=== PATIENT | male | born 1950 | race Caucasian/White ===

== ENCOUNTER 2016-08-25 12:33 | Inpatient (IN) | payer MEDICARE ==
[~2016-08-25] VITALS: Ht 170.2 cm; Wt 81.0 kg
[2016-08-25 14:30] VITALS: BP 166/103; PULSE 107; O2SAT 95
--- NOTE | 2016-08-25 14:30 | NUR ---
admit Patient arrived from [facility] alert and oriented. Patient denies pain. C/o nausea and abdominal tenders and "bloated feeling." pt had 1L removed via paracenthesis at [facility]; abd bandage CDI. Patient stated that he has not voided in two days and has only has a very small dark stool in a week. notified. VS: Bp 163/103 HR125, RR 22, Sp02 on RA 95%, t 36.4 BG 195. Pitting LE edema in ankles and feet, trace in lower legs. Pt stated that he is very weak on feet, no hx of falls. Patient uses call light and has urinal at bedside. Addendum: 08/25/16 at 1820 by KAMI CHAIREZ RN Administered 5mg Lopressor IVP, and 120 mg PO dilt. last set of vitals. BP 134/89 P afib 85
[2016-08-25] MEDS ORDERED: ASPI-973 PO (14:57)
[2016-08-25 15:00] VITALS: PULSE 132
[2016-08-25] MEDS ORDERED: MeTOProlol 1 mg/mL 5 mL Inj IVPUSH SCH (15:20)
[2016-08-25] MEDS ORDERED: MeTOProlol 1 mg/mL 5 mL Inj IVPUSH ONE (15:20)
[2016-08-25] MEDS ORDERED: Furosemide 10 mg/mL 10 mL Inj IVPUSH ONE (15:30)
--- NOTE | 2016-08-25 15:47 | NUR ---
took over patient [id number]
[2016-08-25 15:51] LABS: BASOPHILS % (AUTO) 0.1 % (0-3); EOSINOPHILS % (AUTO) 0 % (0-5); MONOCYTES % (AUTO) 8.1 % (4-12); Mean Corpuscular Hemoglobin 29.8 pg (27.0-35.0); Mean Corpuscular Volume 87.2 fL (81-100); NEUTROPHILS % (AUTO) 88.3 % (40-74); Platelet Count 505 bil/L (150-400)
--- NOTE | 2016-08-25 16:19 | DRSVH ---
PROCEDURE: X-RAY CHEST ONE VIEW, PORTABLE ([id number]) INDICATIONS: pulmonary edema aneuric TECHNIQUE: One view of the chest was acquired. COMPARISON: None. FINDINGS: Surgical changes and devices: None. Lungs and pleura: No pleural effusions or pneumothorax. Lungs are clear. Mediastinum: Mediastinal contours appear normal. Heart size is enlarged. Bones and chest wall: No suspicious bony lesions. Overlying soft tissues appear unremarkable. IMPRESSION: No acute cardiopulmonary disease. Dictated by: Joon GHOSH Interpreted: Louie Carolina MD on 08/25/2016 at 16:18 Transcribed by: AFIA on 08/25/2016 at 16:19 Approved by: Ander Carolina M.D. on 08/25/2016 at 16:19
[2016-08-25 16:25] LABS: Magnesium 2.7 mg/dL (1.6-2.6)
--- NOTE | 2016-08-25 16:25 | PCM.HPMED ---
Subjective Date of Service August 25, 2016 Primary Provider: Admitting Physician: Meet Hutchinson Primary Care Physician: Steve Deal MD Attending Physician: Meet Hutchinson Chief Complaint: Difficulty of breathing History of Present Illness: 66-year-old male with history of hypertension, diabetes, cirrhosis, hep C, atrial fibrillation and should present to [facility] with two weeks of difficulty breathing. Patient stated that he had food poisoning about 2 weeks ago after he had ham and burger. Pt had large amount vomiting and diarrhea once , felt not good. Since then started having his abdominal size was getting bigger , progressively tender. Patient also noticed that he was easily dyspneic with minimal exertion, noticed leg swellings as well. couldn't sleep well but didn't have PND. pt denied cough, sputum, sore throat, runny nose, fever chills. pt stated that he was stubborn and wait till today, decided to come to the hospital due to progressively worsening sx. During the course of [facility]. noted hypertensive to 180s, tachycardic to 130s. [id number]. pt had [id number] iv, responded to [id number]. abd US obtained which showed echogenic liver with multiple nodules, echogenic. ascities. Paracentesis performed, 1liter cloudy fluid was drained, which showed [id number], neut 78%. pt got 1g Ceftriaxone for presumed SBP. Lab showed wbc16.3, h /h15.1/45.0, neu92%, INR1.4, albumin1.0, ammonia<10, bun74, Cr4.4, Na140, K5.5 AST/ALT 35/17, bili normal. PCP was consulted. Given no GI/ nephrology back up, recommended to transfer to [facility] with assumption of HRS. upon MPC, VS 166/103, 107-133, afebrile, 95% on RA. pt looked mildly distressed but comfortable on bed, HOB>20, repeat labs were sent. consulted, Review of Systems: Pertinent positives as noted in history of present illness. All other systems were reviewed and are negative Allergies Coded Allergies: codeine (Verified Allergy, Intermediate, Rash, 08/25/16) Home Medications baby [id number] daily PMH HTN DM liver cirrhosis hepatitis C, used to be on interferon tx afib, thinks he was on AC in the past, cannot remember Surgical History tonsilectomy Family History no CAD Social History Hx Alcohol Use: Yes (occasional) Alcoholic Drinks Per Day: none now Hx Substance Use: Yes (marijuana) Hx Tobacco Use: No Additional Information lives with Exam Vital Signs Vital Sign - Last Date Time Temp Pulse Resp B/P Pulse Ox O2 Delivery O2 Flow Rate FiO2 08/25/16 15:00 132 08/25/16 14:59 Supplement Oxygen 08/25/16 14:30 36.4 166/103 95 Exam NAD, comfortably laying down on the bed, no labored breathing mild JVD, MMM, no LAD tachy irregular, nl s1, s2 no mrg CTAB, no w,c S,distended, mildly tender,normoactive BS+, no stigmata of cirrhosis warm, 1+ pitting edema, pulses 2/2 Assessment & Plan acute, active dyspnea, POA, in the setting of fluid overload, severe REGINO with anuria. currently maintained on RA -high risks of respiratory compromise given anuria, appreciate renal input, probable dialysis, pt is aggreeable -get baseline CXR, O2 supplement as needed. decompensated liver cirrhosis, POA, presumably from underlying hep C. unremarkable hx of etoh. no signs of HE on exam, ammonia unremarkable at [facility]. -will send viral hep panel -trend coag panel -get FOBT -hep C with GI follow up upon d/c new onset ascities, in the setting of cirrhosis, c/b SBP, POA, met criteria+ on ascitic fluid at [place], -continue Rocephine 1g daily, trend fever curve, PCT, FU BCX, needs culture result at [facility] in 1-2days -if pt worsens, will consult ID severe REGINO, POA, possibly prerenal, ATN, HRS. week of aneuria, pt is overaloaded appreciate renal input -alan cath, strict i/o, trend cr, avoid nephrotoxin, renally adjust meds, -albumin challenge per , likely lasix, afib RVR, POA, in the setting of acute infection, rate 110-130s -will try [id number] now, [id number] ivx3, would not too aggressive given infection, -get lipid panel -TTE HTN, monitor for now, until HD more stable, DM, get a1c, diabetic diet dispo:Patient will be admitted with inpatient status with expectation of inpatient therapy for more than 2 midnights diet:renal diet dvt ppx: SCD DNR/DNI, verbally confirmed. VTE Mechanical Devices: Intermittant Pneumatic CD Time spent 65 minutes Eliseo Blackmon MD August 25, 2016 15:12
[2016-08-25] MEDS ORDERED: Cefotaxime Inj 2,000 MG in Dextrose 5% 100 ML IV SCH (16:30)
[2016-08-25] MEDS ORDERED: Albuterol 2.5 mg/3 mL Inhalation Solution NEB ONE ×2 (16:30→17:20)
[2016-08-25] MEDS ORDERED: Insulin Human REGular 300 Unit/3 mL Inj SUBQ SCH (16:30)
[2016-08-25] MEDS ORDERED: Insulin Human REGular 300 Unit/3 mL Inj IV ONE (16:40)
[2016-08-25] MEDS ORDERED: Calcium GLUCO 10% (Gm) Inj 1 GM in 0.9% Sodium Chloride 50 ML IV ONE (16:40)
[2016-08-25] MEDS ORDERED: 0.9% Sodium Chloride 100 ML ONE (16:57)
[2016-08-25 17:02] LABS: INR 1.37 ratio
[2016-08-25] MEDS: Albumin 25% 25 GM in IV Premix 1 EACH IV SCH ×3 (17:05→22:55)
[2016-08-25 17:29] LABS: APPEARANCE,URINE HAZY (CLEAR,HAZY); COLOR,URINE DARK YELLOW (YELLOW); OCCULT BLOOD,URINE LARGE (NEGATIVE); UROBILINOGEN,URINE NORMAL (NORMAL)
[2016-08-25 18:08] VITALS: BP 134/89; PULSE 100; RESP 22; O2SAT 93
--- NOTE | 2016-08-25 18:20 | NUR ---
hyperkalemia upon pts K 6.2. See Emar for administration. pt denies cp and has no s/s d/t electrolyte imbalance.
--- NOTE | 2016-08-25 19:31 | NUR ---
transfer transfered pt [place] [facility] to [facility] due to worsening condition. Bedside report given and medications brought down. Pt displayed no s/s of distress at time of transfer. see EMAR medications administered for hyperkalemia, HTN and tachycardia.
[2016-08-25 19:34] VITALS: BP 121/79; PULSE 94; RESP 25; O2SAT 90
--- NOTE | 2016-08-25 19:34 | NUR ---
Placed Cameron and pt had less than 50mL of urine after not voiding for two days. Albumin given and IV lasix held per nephrology
[2016-08-26] VITALS (9 sets, daily range): BP systolic 127–149; BP diastolic 69–98; PULSE 93–132; RESP 24–28; O2SAT 93–97
--- NOTE | 2016-08-26 05:41 | NUR ---
Resp/HR pt reports SOB when supine, instructed pt to only lay on sides to take pressure off from internal organs, pt refused O2, sats in low to mid 90's. HR steadily increasing throughout night, sustaining in 120's and 130's, called and order for IV Metoprolol received, HR improved to 100's. pt denies any pain, just pressure in his abdomen.
[2016-08-26] MEDS ORDERED: MeTOProlol 1 mg/mL 5 mL Inj IVPUSH ONE ×2 (06:00→13:15)
[2016-08-26 07:38] LABS: BASOPHILS % (AUTO) 0.1 % (0-3); EOSINOPHILS % (AUTO) 0 % (0-5); MONOCYTES % (AUTO) 7.6 % (4-12); Mean Corpuscular Hemoglobin 30.3 pg (27.0-35.0); Mean Corpuscular Volume 87.7 fL (81-100); NEUTROPHILS % (AUTO) 88.5 % (40-74); Platelet Count 331 bil/L (150-400)
[2016-08-26 08:13] LABS: Magnesium 2.7 mg/dL (1.6-2.6); Phosphorus 8.3 mg/dL (2.5-4.9)
[2016-08-26] MEDS ORDERED: Sodium Chloride LOK Flush 10 mL Syringe IVFLUSH PRN ×2 (09:40)
--- NOTE | 2016-08-26 10:56 | NUR ---
NUTRITION ASSESSMENT: ASSESS:66 YO male admitted with hepatorenal syndrome. There is a high risk of respiratory compromise given anuria. Per provider, pt. will likely require dialysis. He also presents with decompensated liver cirrhosis, presumably from underlying hep C, new onset ascites. PICC line placement today. PMHx:Hepatitis C, cirrhosis, HTN, type 2 diabetes, A-fib, recent food poisoning. DIET:Renal consistent carb. PO intake refusal of trays currently. LABS: Chloride 90, BUN 77, Cr 3.96, Glu 219, A1c 7.0, Phos 8.3, M 2.7, Alb 3.8. MEDICATIONS: Albumin. NUTRITION FOCUSED PHYSICAL ASSESSMENT: GI symptoms / stool: Diarrhea reported.Bill: 17.0. Skin Integrity: No issues reported. ANTHROPOMETRICS: Current Wt: 79.8 kgBMI: 27.0 kg/m2. IBW: 67.27 kg (119% IBW) ESTIMATED NEEDS (LIVER DISEASE, ACUTE RENAL FAILURE): Calories: 2394 - 2793 kcal (30 - 35 kcal / kg BW) Protein: 80 - 96 g protein (1.0 - 1.2 g / kg BW) Fluid: Approx. 2000 mL (25 mL / kg BW) NUTRITION DIAGNOSIS: 1)Altered nutrition related labs related to hepatorenal syndrome, as evidenced by significant electrolyte abnormalities, elevated BUN, Cr. 2)Increased nutrient needs related to hepatorenal syndrome, per guidelines. INTERVENTION: 1) Will send Suplena pre-dialysis supplement on lunch and dinner trays, Nepro once dialysis has been initiated. MONITOR/EVALUATE: Diet / supplement tolerance, PO intake, labs, GI/nutrition status. Follow up per moderate nutrition risk guidelines.
--- NOTE | 2016-08-26 12:17 | DRSVH ---
PROCEDURE: X-RAY PICC LINE PLACEMENT BY NURSE ([id number]) INDICATIONS: iv access failed COMPARISON: None. FINDINGS: PICC was placed by the intravenous therapy team from the left side. Fluoroscopic spot dione m demonstrates tip of PICC projected over the cavoatrial junction. IMPRESSION: Tip of PICC projected over the cavoatrial junction as expected. Dictated by: Maribel Kimble M.D. on 08/26/2016 at 12:15 Approved by: Maribel Kimble M.D. on 08/26/2016 at 12:15
[2016-08-26] MEDS: cefTRIAXone Inj 1,000 MG in Dextrose 5% Minibag Plus 50 ML IV SCH (13:01)
[2016-08-26] MEDS ORDERED: Glucose 40% Oral Gel 15 Gm Tube PO PRN (13:30)
--- NOTE | 2016-08-26 14:54 | CONS ---
[address] [address] CONSULTATION REPORT PATIENT: MAKENNA RIGGINS : 1950 MR#: [id number] ADMIT: 08/25/2016 JOB ID: [id number] DATE OF SERVICE: 08/27/2015 REQUESTING PHYSICIAN: Dr. Hutchinson. REASON FOR CONSULTATION: Management of acute kidney injury and hyperkalemia. CHIEF COMPLAINT: Shortness of breath. PRESENT ILLNESS: This is a 66-year-old, male with significant past medical history of chronic hepatitis C infection, liver cirrhosis, type 2 diabetes, hypertension, atrial fibrillation, who was transferred from [facility] for a higher level of care. Patient presented to [facility] ER with a complaint of difficulty breathing. The symptoms started approximately two weeks ago. The patient has noticed increased abdominal girth and difficulty breathing. The patient also had dyspnea on exertion. Patient noticed some dark brown urine. He reports history of nocturia and unable to empty the bladder. The patient denies history of fever, chills. He reported he possibly had a food poisoning a couple weeks ago. He had nausea, vomiting, and diarrhea at that time. However, those symptoms went away. The patient was treated with interferon for chronic hepatitis C. The patient has not seen any physician at least over the past one year. At one point, he was told that he has kidney dysfunction but he was not aware of the severity of the kidney disease. Upon arrival at the [facility] ER, patient was found to be tachycardic, irregular heart rhythm, and hypertensive. He received IV diltiazem that brought down his heart rate from 130s to 100s. Abdominal sonogram was done. Also showed echogenic liver with multiple nodules and ascites. One liter of abdominal paracentesis was performed. Fluid showed WBC of 5109. He received IV ceftriaxone. Of note, his initial creatinine was 4.4, potassium of 5.5. The patient then brought to the [facility] for a higher level of care. His initial vitals showed temperature of 36.4, pulse 107, respiratory 22, blood pressure 166/103. Initial blood work showed sodium of 135, potassium 6.2, chloride 90,, bicarb 24, BUN 76, creatinine 4.26. Albumin 2.9. The patient received IV albumin and IV Lasix overnight. The repeat BMP this morning showed sodium 138, potassium 4.9, chloride 90, bicarb 23, BUN 77, creatinine 3.96. The patient remains oliguric over the past 12 hours. During my visit his current heart rate has ranged between 100-130s. The patient denies the use of NSAIDs. He denied history of vasculitis or nephrolithiasis. PAST MEDICAL HISTORY: 1. Chronic liver cirrhosis. 2. Chronic hepatitis C infection. 3. Chronic atrial fibrillation. 4. Type 2 diabetes. 5. Hypertension. SURGICAL HISTORY: Status post tonsillectomy. FAMILY HISTORY: No kidney disease in the family. SOCIAL HISTORY: Patient drinks socially. He uses marijuana. Denied excessive alcohol intake. ALLERGIES: CODEINE. HOME MEDICATION: Aspirin 81 mg once a day. REVIEW OF SYSTEMS: Fourteen-point review of systems was performed. PHYSICAL EXAM: Vitals: Temperature 36.8, pulse 132, respiratory 24, blood pressure 149/98, O2 sat 94% on room air. General appearance: Chronically ill-looking in no acute distress. No tachypnea. HEENT: Mild pallor. No icteric sclerae. No JVD. No lymphadenopathy. No thyroid enlargement. Heart: Irregular rhythm. Tachycardic. Variable S1. No murmur. Lungs: Decreased breaths at the bases. No wheezing. No rhonchi. Abdomen: Soft. Moderate distention. Active bowel sounds. Positive for fluid wave. Extremity: Trace edema on the lower extremity. LABORATORY: Sodium 138, potassium 4.9, chloride 90, bicarb 24, BUN 77, creatinine 3.96. Calcium 8.7, phosphorus 8.3, magnesium 2.7. Total protein 5.9, albumin 3.8. Procalcitonin 0.69. UA: pH 5.0, specific gravity 1.030, protein 100, 11-50 RBCs, 0-5 WBCs, granular casts noted. Urine sodium 13, urine protein 221, urine creatinine 187. ASSESSMENT: 1. Severe renal insufficiency, unknown baseline. The patient received IV albumin overnight and he received medical management for the potassium. Current creatinine came down to 3.96. However, patient remains oliguric. His blood pressure has been stable throughout on the high side and he remains tachycardic. The etiology of acute kidney injury is possibly due to hepatorenal syndrome. Other possibilities include intravascular volume depletion, low effective circulating volume due to atrial fibrillation with RVR, increase intrabdominal pressure, and ischemic ATN. At this point, I would like to repeat a kidney and abdominal sonogram to reassess for ascites. I would recommend to perform another abdominal paracentesis. For now I will continue 25% albumin 100 cc every 8 hours. I will add octreotide 100 mg subcu q.8 h. Since his potassium is now under control, I do not foresee dialysis today. However, we will monitor his kidney function and volume status on a daily basis. 2. Suspected SBP. 3. Decompensated liver failure. 4. Abdominal ascites. 5. Chronic hepatitis C infection. 6. Atrial fibrillation with RVR. 7. History of hypertension. 8. History of type 2 diabetes. PLANS: Will continue 25% albumin and start octreotide. Will order abdominal sonogram. Will order complement 3, 4, and total complement 50. Thank you for allowing me to participate in the care of your patient. We will monitor along with you. BENJAMIN
--- NOTE | 2016-08-26 15:26 | DRSVH ---
PROCEDURE: US ABDOMEN ([id number]) INDICATIONS: Ascites, REGINO. TECHNIQUE: Real-time scanning was performed of the abdominal and retroperitoneal organs, with image documentatio n. COMPARISON: None. FINDINGS: A moderate amount of ascites is visualized in all 4 quadrants. IMPRESSION: Moderate intra-abdominal ascites. Dictated by: Maribel Kimble M.D. on 08/26/2016 at 15:23 Approved by: Maribel Kimble M.D. on 08/26/2016 at 15:24
--- NOTE | 2016-08-26 15:41 | PCM.PNMED ---
Subjective Date of Service August 26, 2016 Subjective Mr. Wyatt is a 66-year-old gentleman with a history of hypertension, diabetes , cirrhosis, hep C, atrial fibrillation here with 2 weeks of increasing abdominal distention, seen at [facility] and transferred here for higher level care, he has been increasingly dyspneic with minimal exertion and also tachypneic. Gastroenterology and nephrology are both involved in the case. This morning he reports that he is very uncomfortable with his belly swelling despite the 1 L of fluid taken off at [facility] the day before. Exam Vital Signs Vital Sign - Last Date Time Temp Pulse Resp B/P Pulse Ox O2 Delivery O2 Flow Rate FiO2 08/26/16 12:10 36.8 132 24 149/98 94 Room Air Intake and Output 08/25/16 08/25/16 08/26/16 Cumulative From/Thru 15:00 23:00 07:00 08/25/16 14:32 - 08/26/16 06:42 Intake Total 482 ml 250 ml 732 ml Output Total 25 ml 150 ml 175 ml Balance 457 ml 100 ml 557 ml Intake Oral 300 ml 250 ml 550 ml IV Total 182 ml 182 ml Output Urine Total 25 ml 150 ml 175 ml Exam General: NAD, comfortably laying down on the bed, no labored breathing Cardiac: mild JVD, MMM, no LAD, tachy irregular, nl s1, s2 no mrg Lungs: CTAB, no w,c Abdomen: distended, mildly tender,normoactive BS+, no stigmata of cirrhosis Extremities: warm, 1+ pitting edema, pulses 2/2 IVs and Medications Medications Reviewed: Medications were reviewed in detail Lab and Diagnostics Result Diagram: 08/26/16 0723 08/26/16 0723 Microbiology Laboratory Tests Test 08/25/16 15:41 08/25/16 17:10 08/25/16 22:40 08/26/16 07:23 White Blood Count 14.9th/mm3 (3.8-10.1) 14.0th/mm3 (3.8-10.1) Red Blood Count 4.93mil/mm3 (4.40-5.80) 4.56mil/mm3 (4.40-5.80) Hemoglobin 14.7g/dL (13.8-17.2) 13.8g/dL (13.8-17.2) Hematocrit 43.0% (41.0-50.0) 40.0% (41.0-50.0) Mean Corpuscular Volume 87.2fL (81-100) 87.7fL (81-100) Mean Corpuscular Hemoglobin 29.8pg (27.0-35.0) 30.3pg (27.0-35.0) Mean Corpuscular Hemoglobin Concent 34.2% (32.0-37.0) 34.5% (32.0-37.0) Red Cell Distribution Width 13.9% (12.3-15.4) 13.8% (12.3-15.4) Platelet Count 505bil/L (150-400) 331bil/L (150-400) Neutrophils (%) (Auto) 88.3% (40-74) 88.5% (40-74) Lymphocytes (%) (Auto) 3.2% (14-46) 3.4% (14-46) Monocytes (%) (Auto) 8.1% (4-12) 7.6% (4-12) Eosinophils (%) (Auto) 0% (0-5) 0% (0-5) Basophils (%) (Auto) 0.1% (0-3) 0.1% (0-3) Prothrombin Time 14.8sec (8.1-12.5) Prothromb Time International Ratio 1.37ratio Activated Partial Thromboplast Time 27.4sec (22.8-33.0) 28.9sec (22.8-33.0) Sodium Level 135mEq/L (134-144) 136mEq/L (134-144) 138mEq/L (134-144) Potassium Level 6.2mEq/L (3.5-5.2) 5.1mEq/L (3.5-5.2) 4.9mEq/L (3.5-5.2) Chloride Level 90mEq/L (97-108) 89mEq/L (97-108) 90mEq/L (97-108) Carbon Dioxide Level 24mmol/L (18-29) 22mmol/L (18-29) 23mmol/L (18-29) Blood Urea Nitrogen 76mg/dL (8-27) 76mg/dL (8-27) 77mg/dL (8-27) Creatinine 4.26mg/dL (0.76-1.27) 4.22mg/dL (0.76-1.27) 3.96mg/dL (0.76-1.27) Estimat Glomerular Filtration Rate 15mL/min (>59) 15mL/min (>59) 16mL/min (>59) Glucose Level 243mg/dL (60-99) 205mg/dL (60-99) 219mg/dL (60-99) Hemoglobin A1c 7.0% (4.8-5.6) Calcium Level 8.8mg/dL (8.5-10.1) 8.8mg/dL (8.5-10.1) 8.7mg/dL (8.5-10.1) Magnesium Level 2.7mg/dL (1.6-2.6) 2.7mg/dL (1.6-2.6) Total Bilirubin 0.5mg/dL (0.0-1.2) 0.6mg/dL (0.0-1.2) 0.5mg/dL (0.0-1.2) Aspartate Amino Transf (AST/SGOT) 28U/L (0-50) 26U/L (0-50) 24U/L (0-50) Alanine Aminotransferase (ALT/SGPT) 12U/L (0-44) 10U/L (0-44) 9U/L (0-44) Alkaline Phosphatase 124U/L (25-160) 102U/L (25-160) 92U/L (25-160) Total Protein 6.2g/dL (6.4-8.4) 5.8g/dL (6.4-8.4) 5.9g/dL (6.4-8.4) Albumin 2.9g/dL (3.4-5.0) 3.6g/dL (3.4-5.0) 3.8g/dL (3.4-5.0) Procalcitonin 0.69ng/mL (0.00-0.08) 0.69ng/mL (0.00-0.08) Hold Cardoso Top Tube Received (Received) Urine Color Dark yellow (YELLOW) Urine Appearance Hazy (CLEAR,HAZY) Urine pH 5.0 (5.0-8.0) Urine Specific [place] >1.030 (1.003-1.035) Urine Protein 100mg/dL (NEG,TRACE) Urine Glucose (UA) Negativemg/dL (NEGATIVE) Urine Ketones Tracemg/dL (NEGATIVE) Urine Occult Blood Large (NEGATIVE) Urine Nitrite Negative (NEGATIVE) Urine Bilirubin Negative (NEGATIVE) Urine Urobilinogen Normalmg/dL (NORMAL) Urine Leukocyte Esterase Negative (NEGATIVE) Urine RBC 11-50/hpf (0-2) Urine WBC 0-5/hpf (0-5) Urine Epithelial Cells Few/hpf (NONE-MOD) Urine Crystals None seen (NONE SEEN) Urine Bacteria Few/hpf (NONE-FEW) Urine Hyaline Casts None/lpf (NONE) Urine Granular Casts Occasional (NONE SEEN) Urine Waxy Casts None seen (NONE SEEN) Urine Red Blood Cell Casts None seen (NONE SEEN) Urine White Blood Cell Casts None seen (NONE SEEN) Urine Mucus None seen (None Seen) Urine Trichomonas None seen (NONE SEEN) Urine Yeast None (NONE SEEN) Urinalysis Comment Amorphous sediment Urine Culture Reflexed Not indicated Urine Urea Nitrogen 279mg/dL (Not Estab.) Phosphorus Level 8.3mg/dL (2.5-4.9) Hepatitis C Comment . Test 08/26/16 10:15 Urine Random Creatinine 187mg/dL (22-328) Urine Random Total Protein 221mg/dL (0-15) Urine Random Sodium 13mEq/L Urine Opiates Screen Negative Urine Methadone Screen Negative Urine Barbiturates Screen Negative Urine Amphetamines Screen Negative Urine Benzodiazepines Screen Negative Urine Cocaine Metabolite Screen Negative Urine Cannabinoids Screen Negative Microbiology 08/25/16 Blood Culture, Received Pending Peritoneal fluid at [facility]: WBCs 5190, neutrophils 78%, total protein 2.5, LDH 159, Gram stain and culture showed no organisms, no growth at 24 hours X-Rays, CTs and MRIs Chest x-ray shows no acute cardiopulmonary process Cardiac Echo Impressions pending Additional Diagnostics Abdominal U/S pending Peritoneal fluid analysis pending Assessment & Plan 66-year-old gentleman with a history of hypertension, diabetes, cirrhosis, hep C , atrial fibrillation here with 2 weeks of increasing abdominal distention, seen at [facility] and transferred here for higher level care, he has been increasingly dyspneic with minimal exertion and also tachypneic. Gastroenterology and nephrology are both involved in the case. acute, active Dyspnea, present on admission, active -in the setting of fluid overload, severe acute kidney injury with anuria. currently maintained on room air -high risks of respiratory compromise given anuria, appreciate renal input, probable dialysis, pt is aggreeable -CXR shows no acute cardiopulmonary process, O2 supplement as needed. Decompensated liver cirrhosis, present on admission, -presumably from underlying hep C. unremarkable history of alcohol. no signs of hepatic encephalopathy on exam, ammonia unremarkable at [place], normal liver function tests. -Viral hepatitis panel pending -trend coag panel -get fecal occult blood test -hep C with GI follow up upon discharge New Onset Ascities, present on admission. Worsening -In the setting of cirrhosis, c/b SBP, POA, met criteria+ on ascitic fluid at [place], -continue Rocephin 1g daily, trend fever curve, PCT, FU BCX, -Gram stain and culture of peritoneal fluid from [place] shows no organisms and no growth at 20 40 -Per Dr. Monae of gastroenterology: Repeat Gram stain and culture repeat paracentesis complete set analyses including total protein, albumin, glucose, LDH, cell count, Gram stain and culture -if pt worsens, will consult ID Severe acute renal failure, present on admission. Slight improvement in creatinine -possibly prerenal, ATN, HRS. week of aneuria, pt is overloaded -We appreciate input from nephrology, Dr. Carey -alan cath, strict i/o, trend cr, avoid nephrotoxins, renally adjust meds, -albumin challenge per Atrial Fibrillation with Rapid Ventricular Rate, POA, improving -in the setting of acute infection, rate 110-130s -Good response to metoprolol 5mg IV x4, -Diltiazem 60 mg by mouth daily -Lipid panel pending -Stat echo has been ordered Hypertension, present on admission. Stable - monitor for now, until HD more stable, Diabetes type II, present on admission. Poorly controlled -Not currently medicated at all -H A1c ordered, -diabetic diet dispo:Patient will be admitted with inpatient status with expectation of inpatient therapy for more than 2 midnights diet:renal diet dvt ppx: SCD DNR/DNI, verbally confirmed. Pain Evaluation: Adequate Pain Control VTE Prophylaxis: SCDs VTE Mechanical Devices: Intermittant Pneumatic CD Resuscitation Status: DNR/DNI:Do Not Resuscitate/Intubate Limited Interventions: Medications and IV Fluid Attending Statement The patient was seen and examined together with Resident/House-Staff on 08/26/16 and I agree with the history, exam and plan as outlined in the note above. Cyrus Christine DO August 26, 2016 15:41 Meet Hutchinson August 28, 2016 16:53
--- NOTE | 2016-08-26 15:51 | CONS ---
[address] [address] CONSULTATION REPORT PATIENT: MAKENNA RIGGINS : 1950 MR#: [id number] ADMIT: 08/25/2016 JOB ID: [id number] DATE OF SERVICE: I had the pleasure of seeing the patient at [facility] for evaluation of new onset ascites. This is a 66-year-old gentleman with history of hypertension, diabetes, hepatitis C, status post successful treatment with interferon and ribavirin according to the patient in 2011. He has a history of compensated cirrhosis. He also has a history of underlying atrial fibrillation. He was in his usual state of health until recently. He did not have evidence of decompensation such as GI bleeding, ascites, fluid retention, jaundice in the past but he ate something a couple of weeks ago that he ate some food and he believes he had some food poisoning. He started having nausea, vomiting, diarrhea, and ever since then, he was not feeling very well. He was nauseated, still having abdominal pain. Then, about a week ago, he slowly started having increased distention of his abdomen. He was easily getting short of breath with minimal exertion and he was also noting at this time leg swelling as well. Was not able to sleep very well. Then, he went to [facility] because of his having him go to the emergency room. In the [facility], patient was noted to be hypotensive, tachycardic, and tachypneic. They gave him the diltiazem to decrease the heart rate. They did an ultrasound of the liver which showed echogenic liver with multiple nodules, ascites. They did a paracentesis. They took out one liter of cloudy fluids. Showed white count of with 78% neutrophils. They gave him a gram of ceftriaxone. White count over there was a 16,000 with 92% neutrophils, hemoglobin was 15. His creatinine was 4.4. They did not have GI, nephrology; therefore, he was transferred to this hospital. Overnight, he is still in distress and he does not feel comfortable. When I saw him today, he had abdominal discomfort and he was not comfortable. He is still having some shortness of breath. He denied any chest pain. He denied any blood in the stools, black stools, diarrhea, constipation. Denied any fevers or chills at home. He never had issue with this ascites before as stated above. The only home medication is baby aspirin. PAST MEDICAL HISTORY: High blood pressure, diabetes, cirrhosis, hepatitis C, successful treatment according to the patient, Heike. PAST SURGICAL HISTORY: Tonsillectomy. FAMILY HISTORY: Noncontributory. SOCIAL HISTORY: He occasionally uses alcohol. Marijuana. No tobacco use. MEDICATIONS: Here includes: Octreotide, ceftriaxone, oxycodone, dextrose, insulin, diltiazem, albumin, Zofran. Vitals include temp of 36.8, pulse 132, respiration 24, blood pressure 140/98. Pulse rate ranged from 93-132. Head and neck: No icterus. No lymphadenopathy. Lungs: Slight crackles. Cardiovascular: Tachy, irregular. Abdomen: Distended. Soft. Diffuse tenderness. No guarding, rebound or firmness with normoactive bowel sounds. Extremities: Pitting edema of the ankles noted. Skin shows no obvious jaundice. Radial pulses bilateral, strong, and intact. LABORATORY DATA: BUN is 77, creatinine 3.96. Glucoses is 219. Calcium 8.7. Total bili 0.5, AST 24, ALT 9, alk phos 92. Total protein 5.9, albumin is 3.8 but on admission, his albumin is 2.9. INR is 1.37. White count was 14,000, hemoglobin 13.8. Platelets are 331,000. IMPRESSION: 1. This is a gentleman with underlying hepatitis C. Apparently was treated successfully by a liver specialist in [place] with interferon, ribavirin. He has a history of cirrhosis but does not appear to have history of decompensated cirrhosis. He has no thrombocytopenia. However, he has low albumin. It is unclear, but it does not appear that he had hepatocellular carcinoma screening every six months even though he had underlying cirrhosis. Currently, he has new onset ascites with new onset spontaneous bacterial peritonitis. The cause of the peritonitis may have been due to bacterial shedding from possible food poisoning or contaminated food. 1. Currently, he is alert, oriented x3. There is minimal evidence of encephalopathy but would check mental status per shift and if there is evidence of encephalopathy, please start rifaximin and lactulose. 2. Cardiopulmonary-feliciano, he does have a mild elevation of JVP on examination. He does have a history of coronary disease according to the patient, as well as diabetes. Would recommend getting an echocardiogram because based on the fluid analysis that was done in [place], his total protein was 2.5. We do not have the albumin level and there could be some element of heart failure. 3. Abdominal tenderness with new onset ascites. This could be due to the liver or could be new onset portal vein thrombosis. He has elevated creatinine so CT with IV contrast was contraindicated according to the primary care service. Therefore, recommend ultrasound with Dopplers to make sure there is no vascular issue. 4. Spontaneous bacterial peritonitis treatment. At this point, the culture from [place] was negative and no organism was seen in Gram stain, according to the information that I received. Still waiting for cultures. He is still uncomfortable. Therefore, recommend therapeutic tap and further analysis of the ascites fluids by a getting CBC with differential of the fluids, total protein, and albumin level, as well as repeat culture. 5. He has underlying history of cirrhosis but would recommend getting an alpha fetoprotein level to see if it is elevated. If it is elevated, there is a chance that he may have underlying hepatocellular carcinoma. Therefore, imaging becomes more imperative including either MRI or CT with contrast. 6. Most likely, he has hepatorenal syndrome. The Nephrology consult recommended and I will defer treatment. Most likely, he will be on midodrine, octreotide, and albumin. 7. For his SBP, I will recommend giving him albumin infusion 1.5 g/kg within the first 6 hours or at the end of this day, and three days later, he is given 1.0 g/kg on day number three, albumin. However, before proceeding, please make sure his echocardiogram shows adequate heart function because albumin could potentially cause a significant amount of heart failure. 8. For his SBP treatment, please start the patient on cefotaxime 2 g IV q.8 h. for at least five days, and on day number three or four. Re-tap for diagnostic purposes to make sure his cell count and differential normalizes. MTDD
--- NOTE | 2016-08-26 15:54 | NUR ---
Social Work: Initial Assessment Data & Assessment: See Initial Assessment. EMR review. Patient is a 66 y/o male that admitted on 08/25/16 with hepatorenal syndrome per H&P. VALERIANO met with patient and patient's /NOK, Gege Wyatt [phone], to discuss discharge, SW role reviewed and initial assessment complete. Patient does not have an Advance Directive/DPOA, but accepted the information from SW. Patient's PCP is Dr. Steve Deal and patient's insurance is Medicare. Patient does not have LTC or VA benefits. Patient lives is a split level mobile home with his . Patient's home has 4 steps to enter and 6 steps on the inside. Patient reported that he does drive and has a cane the he use sometime. Patient reports no HH or SNF history. SW will continue to follow [facility] for discharge planning needs. SW provided contact information on [employer]. Plan: Patient will likely discharge vis POV. SW will continue to follow patient for needs. Aislinn Watters LMSW, RYAN Addendum: 08/26/16 at 1603 by AISLINN GARCIA Amended: Links added.
[2016-08-26] MEDS ORDERED: Albumin 25% 25 GM in IV Premix 1 EACH IV SCH (16:00)
--- NOTE | 2016-08-26 16:51 | NUR ---
No IV access/fast heart rate/pain/parentheses/exposure panel Difficult to obtain blood samples /draw- patient remained a difficult stick. Unable to administer morning IV medications because of luck of IV access- MD was made aware. Triple lumen left upper arm PICC line was placed by IV therapy early this afternoon- IV medications were administered. Progressively increasing heart rate from 100-110 to 130m-140s and sustaining in the higher rates- MD was made aware Lopressor 5mg IV was given slow push followed by Cardizem 60mg PO in 1h and 20min. Heart rate remained a-fib but responded/decreased following IV metoprolol to mid-90s up to 120s with activity- continue assessment. Abdominal discomfort increased during the shift with increased abdominal fullness from asides. Abdominal ultrasound was completed to be follow up by irene procedure today. Patient was medicated with oxycodone 5mg PO with good improvement of pain but not felling of abdominal fullness- MD aware. 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 Patient was informed that an exposure blood panel was ordered as part of follow up/exposure protocol patient agreed to the lab draws.
[2016-08-26] MEDS: Ondansetron 2 mg/mL 2 mL Inj IVPUSH PRN ×2 (17:22→22:31)
[2016-08-26] MEDS: Insulin LISPRO 300 Unit/3 mL Inj SUBQ SCH ×2 (18:21→22:00)
--- NOTE | 2016-08-26 18:24 | NUR ---
Nausea Patient complained of increased abdominal fullness and nausea. Vkgc3yl had led than 10ml of clear to light green emesis in emesis basin. Patient was medicated with Zofran 8mg IV x1 symptoms subsided- MD aware.
--- NOTE | 2016-08-26 20:17 | DRSVH ---
[facility] [address] [place] [address] Echocardiogram Report Name: MAKENNA RIGGINS RStudy Date: 08/26/2016 Height: 67 in Hospital Exam Location: [facility] Weight: 175 lb Gender: Male BSA: 1.9 m2 : 1950 Age: 66 yrs BP: 149/98 mmHg Reason For Study: Dyspnea Ordering Physician: Performed By: [facility] Interpretation Summary Technically difficult echo. No apical nor subcostal images obtainable due to severe abdominal pain. Afib with rapid ventricular response. Normal LV size; mild concentric LVH. Normal wall motion in the visualized segments. Of note, only 8 out of 17 segments are visualized. There is mild MAC with mild associated MR. Aortic valve is a trileaflets structure without associated TR. Ascending aorta is mildly enlarged (4.5 cm diameter) No prior study available for comparison. Procedure: A two-dimensional transthoracic echocardiogram with color flow and Doppler was performed. Only parasternal views were obtained due to the patient being in too much pain from abdominal ascites to remain still enough to acquire apical images. The study quality was technically limited. There is no prior echocardiogram noted for this patient. The heart rate ranged between 93-142 bpm during the study. Left Ventricle: The left ventricle is normal in size. Proximal septal thickening is noted. Left ventricular ejection fraction is estimated to be 45. Diastolic function could not be accurately assessed due to unobtainable data. Right Ventricle: The right ventricle is not well visualized. Atria: The left atrium is not well visualized. The right atrium is compressed by the abdominal ascites. Right atrium not well visualized. Mitral Valve: There is mild mitral annular calcification. The mitral valve leaflets are mildly calcified. There is probably mild mitral regurgitation. Aortic Valve: The aortic valve is trileaflet. Leaflet mobility is minimally reduced. No aortic regurgitation is present. Tricuspid Valve: The tricuspid valve is not well visualized. Pulmonic Valve: The pulmonic valve is normal in structure and function. There is a trace or physiologic amount of pulmonic regurgitation. Great Vessels: The aortic root is normal size. The ascending aorta is mild- moderately enlarged. The pulmonary artery is normal size. Pericardium/ Pleura There is no pericardial effusion. MMode/2D Measurements & Calculations LVIDd LVOT diam LV benítez. diameter/BSA LV sys. diameter/BSA : 4.5 cm (cm/m^2): 2.3 (cm/m^2): 1.6 LVIDs Ao root diam : 3.1 cm FS: 31.0 %asc Aorta Diam IVSd : 1.cm LVPWd : 1.0 cm Doppler Measurements & Calculations PA V2 max: 35.6 cm/sec PA V2 mean: 22.0 cm/sec PA mean P.23 mmHg PA Accel Time: 0.05 sec Reading Physician:08:17 PM
[2016-08-27] VITALS (15 sets, daily range): BP systolic 126–170; BP diastolic 68–110; PULSE 96–135; RESP 18–26; O2SAT 91–96
[2016-08-27] MEDS: Albumin 25% 25 GM in IV Premix 1 EACH IV SCH ×3 (00:49→17:33)
[2016-08-27] MEDS ORDERED: MeTOProlol 1 mg/mL 5 mL Inj IVPUSH ONE (03:30)
[2016-08-27 04:31] LABS: BASOPHILS % (AUTO) 0.1 % (0-3); EOSINOPHILS % (AUTO) 0.1 % (0-5); MONOCYTES % (AUTO) 8.7 % (4-12); Mean Corpuscular Hemoglobin 29.9 pg (27.0-35.0); Mean Corpuscular Volume 87.6 fL (81-100); NEUTROPHILS % (AUTO) 87.4 % (40-74); Platelet Count 401 bil/L (150-400)
--- NOTE | 2016-08-27 05:22 | NUR ---
Pain/Nausea/Vomit/Heart Rate Patient alert and oriented x3. C/o nausea and bloating with some relief from Zofran. Intermittent episode of vomiting/spitting up light green emesis about 20 cc-30 cc. Oxycodone has been given q4h as needed. Noted patient needing pain meds even before next dose at times. Afib with heart rate 120s-130s. Pt has been also noted to be hypertensive. Md made aware and new order for Metoprolol 5 mg IV x1. Heart rate trend noted in between 100 to 120s after the dose was given. Blood pressure trend down as well. Noted increased in abdominal girth size from what was noted during early shift. Cameron with scant brown urine.
[2016-08-27 06:08] LABS: Hepatitis A Antibody IgM Negative (Negative); Hepatitis B Core Antibody IgM Negative (Negative)
[2016-08-27 09:06] LABS: Magnesium 2.7 mg/dL (1.6-2.6); Phosphorus 10.5 mg/dL (2.5-4.9)
[2016-08-27] MEDS: cefTRIAXone Inj 1,000 MG in Dextrose 5% Minibag Plus 50 ML IV SCH (09:38)
[2016-08-27] MEDS: Insulin LISPRO 300 Unit/3 mL Inj SUBQ SCH ×4 (09:42→22:00)
--- NOTE | 2016-08-27 10:51 | PCM.PNMED ---
Subjective Date of Service August 27, 2016 Subjective Overnight patient was uncomfortable and unable to rest. Abdominal tenderness/ tightness was increased as has his ascites. Still has some trouble with shortness of breath but no chest pain noted, he also denies black or tarry stools, emesis, blood in stools, etc. we will discussed with hospitalist team sounds like over done today. Also no abdominal pressure available. Ultrasound yesterday showed moderate ascites. Echo yesterday was unable to assess the right ventricle Exam Vital Signs Vital Sign - Last Date Time Temp Pulse Resp B/P Pulse Ox O2 Delivery O2 Flow Rate FiO2 08/27/16 09:55 107 08/27/16 04:20 158/95 95 Nasal Cannula 2.00 08/27/16 03:50 26 08/27/16 03:12 36.6 Intake and Output 08/26/16 08/26/16 08/27/16 Cumulative From/Thru 15:00 23:00 07:00 08/25/16 14:32 - 08/27/16 06:20 Intake Total 550 ml 620 ml 1902 ml Output Total 120 ml 75 ml 370 ml Balance 430 ml 545 ml 1532 ml Intake Oral 400 ml 520 ml 1470 ml IV Total 150 ml 100 ml 432 ml Output Urine Total 120 ml 75 ml 370 ml Exam Gen.: Patient uncomfortable lying in bed HEENT: No JVD, no lymphadenopathy Cardio: Tachycardic Respiratory: Crackles in bases otherwise clear Abdomen: Increased abdominal tenderness, increased girth increased tension; unable to palpate liver disorder Extremities: No edema Psych: Appropriate mood and affect IVs and Medications Medications Reviewed: Medications were reviewed in detail Lab and Diagnostics Result Diagram: 08/27/16 0400 08/27/16 0400 Microbiology Laboratory Tests Test 08/25/16 15:41 08/25/16 17:10 08/25/16 22:40 08/26/16 07:23 White Blood Count 14.9th/mm3 (3.8-10.1) 14.0th/mm3 (3.8-10.1) Red Blood Count 4.93mil/mm3 (4.40-5.80) 4.56mil/mm3 (4.40-5.80) Hemoglobin 14.7g/dL (13.8-17.2) 13.8g/dL (13.8-17.2) Hematocrit 43.0% (41.0-50.0) 40.0% (41.0-50.0) Mean Corpuscular Volume 87.2fL (81-100) 87.7fL (81-100) Mean Corpuscular Hemoglobin 29.8pg (27.0-35.0) 30.3pg (27.0-35.0) Mean Corpuscular Hemoglobin Concent 34.2% (32.0-37.0) 34.5% (32.0-37.0) Red Cell Distribution Width 13.9% (12.3-15.4) 13.8% (12.3-15.4) Platelet Count 505bil/L (150-400) 331bil/L (150-400) Neutrophils (%) (Auto) 88.3% (40-74) 88.5% (40-74) Lymphocytes (%) (Auto) 3.2% (14-46) 3.4% (14-46) Monocytes (%) (Auto) 8.1% (4-12) 7.6% (4-12) Eosinophils (%) (Auto) 0% (0-5) 0% (0-5) Basophils (%) (Auto) 0.1% (0-3) 0.1% (0-3) Prothrombin Time 14.8sec (8.1-12.5) Prothromb Time International Ratio 1.37ratio Activated Partial Thromboplast Time 27.4sec (22.8-33.0) 28.9sec (22.8-33.0) Sodium Level 135mEq/L (134-144) 136mEq/L (134-144) 138mEq/L (134-144) Potassium Level 6.2mEq/L (3.5-5.2) 5.1mEq/L (3.5-5.2) 4.9mEq/L (3.5-5.2) Chloride Level 90mEq/L (97-108) 89mEq/L (97-108) 90mEq/L (97-108) Carbon Dioxide Level 24mmol/L (18-29) 22mmol/L (18-29) 23mmol/L (18-29) Blood Urea Nitrogen 76mg/dL (8-27) 76mg/dL (8-27) 77mg/dL (8-27) Creatinine 4.26mg/dL (0.76-1.27) 4.22mg/dL (0.76-1.27) 3.96mg/dL (0.76-1.27) Estimat Glomerular Filtration Rate 15mL/min (>59) 15mL/min (>59) 16mL/min (>59) Glucose Level 243mg/dL (60-99) 205mg/dL (60-99) 219mg/dL (60-99) Hemoglobin A1c 7.0% (4.8-5.6) Calcium Level 8.8mg/dL (8.5-10.1) 8.8mg/dL (8.5-10.1) 8.7mg/dL (8.5-10.1) Magnesium Level 2.7mg/dL (1.6-2.6) 2.7mg/dL (1.6-2.6) Total Bilirubin 0.5mg/dL (0.0-1.2) 0.6mg/dL (0.0-1.2) 0.5mg/dL (0.0-1.2) Aspartate Amino Transf (AST/SGOT) 28U/L (0-50) 26U/L (0-50) 24U/L (0-50) Alanine Aminotransferase (ALT/SGPT) 12U/L (0-44) 10U/L (0-44) 9U/L (0-44) Alkaline Phosphatase 124U/L (25-160) 102U/L (25-160) 92U/L (25-160) Total Protein 6.2g/dL (6.4-8.4) 5.8g/dL (6.4-8.4) 5.9g/dL (6.4-8.4) Albumin 2.9g/dL (3.4-5.0) 3.6g/dL (3.4-5.0) 3.8g/dL (3.4-5.0) Procalcitonin 0.69ng/mL (0.00-0.08) 0.69ng/mL (0.00-0.08) Hold Cardoso Top Tube Received (Received) Urine Color Dark yellow (YELLOW) Urine Appearance Hazy (CLEAR,HAZY) Urine pH 5.0 (5.0-8.0) Urine Specific [place] >1.030 (1.003-1.035) Urine Protein 100mg/dL (NEG,TRACE) Urine Glucose (UA) Negativemg/dL (NEGATIVE) Urine Ketones Tracemg/dL (NEGATIVE) Urine Occult Blood Large (NEGATIVE) Urine Nitrite Negative (NEGATIVE) Urine Bilirubin Negative (NEGATIVE) Urine Urobilinogen Normalmg/dL (NORMAL) Urine Leukocyte Esterase Negative (NEGATIVE) Urine RBC 11-50/hpf (0-2) Urine WBC 0-5/hpf (0-5) Urine Epithelial Cells Few/hpf (NONE-MOD) Urine Crystals None seen (NONE SEEN) Urine Bacteria Few/hpf (NONE-FEW) Urine Hyaline Casts None/lpf (NONE) Urine Granular Casts Occasional (NONE SEEN) Urine Waxy Casts None seen (NONE SEEN) Urine Red Blood Cell Casts None seen (NONE SEEN) Urine White Blood Cell Casts None seen (NONE SEEN) Urine Mucus None seen (None Seen) Urine Trichomonas None seen (NONE SEEN) Urine Yeast None (NONE SEEN) Urinalysis Comment Amorphous sediment Urine Culture Reflexed Not indicated Urine Urea Nitrogen 279mg/dL (Not Estab.) Phosphorus Level 8.3mg/dL (2.5-4.9) Hepatitis C Comment . Test 08/26/16 10:15 Urine Random Creatinine 187mg/dL (22-328) Urine Random Total Protein 221mg/dL (0-15) Urine Random Sodium 13mEq/L Urine Opiates Screen Negative Urine Methadone Screen Negative Urine Barbiturates Screen Negative Urine Amphetamines Screen Negative Urine Benzodiazepines Screen Negative Urine Cocaine Metabolite Screen Negative Urine Cannabinoids Screen Negative Microbiology 08/25/16 Blood Culture, Received Pending Peritoneal fluid at [facility]: WBCs 5190, neutrophils 78%, total protein 2.5, LDH 159, Gram stain and culture showed no organisms, no growth at 24 hours X-Rays, CTs and MRIs Chest x-ray shows no acute cardiopulmonary process Cardiac Echo Impressions pending Additional Diagnostics Abdominal U/S pending Peritoneal fluid analysis pending Assessment & Plan Assessment/ 1. Abdominal pain: Continue to recommend that patient have Doppler ultrasound to interrigate the IVC Portal vessels splenic vessels. As he has possible SBP, abdominal pain, and new ascites. 2. Spontaneous bacterial peritonitis: Blood culture so far negative; continue antibiotics for now as well as obtain a paracentesis with CBC and differential, total protein, albumin levels, and to repeat culture. Continue albumin on day 3 of hospitalization with 1 g/kg. I would also be cautious as we do not EF on echo; patient's cardiac status hard to determine at this point. 3. He has underlying history of cirrhosis but would recommend getting an alpha fetoprotein level to see if it is elevated. The patient's kidney function improves highly recommend obtaining a CT with contrast 4. Hepatorenal syndrome: Defer to nephrology consult. 5. Please refer to GI note from yesterday for more detailed recommendations. I have seen and examined the patient with the resident and agree with above. Thank you for allowing most to put this when the care of this patient VTE Prophylaxis: SCDs VTE Mechanical Devices: Intermittant Pneumatic CD Resuscitation Status: DNR/DNI:Do Not Resuscitate/Intubate Limited Interventions: Medications and IV Fluid Ric Roberts DO August 27, 2016 10:51 Олег Monae MD August 27, 2016 14:20
[2016-08-27 11:03] LABS: INR 1.82 ratio
[2016-08-27] MEDS ORDERED: 0.9% Sodium Chloride 250 ML IV SCH (11:15)
[2016-08-27] MEDS: Ondansetron 2 mg/mL 2 mL Inj IVPUSH PRN ×2 (12:41→16:00)
--- NOTE | 2016-08-27 13:39 | NUR ---
[facility] signed
--- NOTE | 2016-08-27 13:41 | PCM.PNMED ---
Subjective Date of Service August 27, 2016 Subjective Nephrology Progress Note: Attending Dr. Neville Wyatt is a 66-year-old, male with significant past medical history of chronic hepatitis C infection, liver cirrhosis, type 2 diabetes, hypertension, atrial fibrillation, who was transferred from [facility] for a higher level of care. Hospital day #3. Overnight: The patient had nausea and small amount of emesis for which Zofran was given with relief. The patient was hypertensive and was given 1 dose of metoprolol IV. Patient continued to endorse pain and required a fair amount of narcotics. Telemetry over night: Atrial fibrillation, heart rate 100 to 130s, with RVR to 150s and no other ectopy. The patient is lying in bed and in no acute distress. He reports shortness of breath and abdominal pain. His abdomen is quite taut and he appears somewhat uncomfortable. He denies headache, chest pain, nausea, vomiting, fever, chills , diarrhea or constipation. He is voiding via Cameron catheter. He has not had a bowel movement since admission. . Exam Vital Signs Vital Sign - Last Date Time Temp Pulse Resp B/P Pulse Ox O2 Delivery O2 Flow Rate FiO2 08/27/16 11:56 36.5 122 26 131/87 94 Nasal Cannula 2.00 Intake and Output 08/26/16 08/26/16 08/27/16 Cumulative From/Thru 15:00 23:00 07:00 08/25/16 14:32 - 08/27/16 06:20 Intake Total 550 ml 620 ml 1902 ml Output Total 120 ml 75 ml 370 ml Balance 430 ml 545 ml 1532 ml Intake Oral 400 ml 520 ml 1470 ml IV Total 150 ml 100 ml 432 ml Output Urine Total 120 ml 75 ml 370 ml Exam General: Middle-aged male lying in bed and in no acute distress, appears older than stated age, well-developed, appropriately interactive. HEENT: Normocephalic, atraumatic. External ears without defect. Pupils equal, round, and reactive to light. Anicteric sclerae, moist conjunctivae, and no lid lag. Oropharynx free of erythema and cobble stoning with moist mucosa. Neck: Supple with full range of motion. No lymphadenopathy or thyromegaly. Cardiovascular: Irregularly irregular rhythm, tachycardic, without murmurs, rubs , or gallops appreciated Pulmonary: Decreased breath sounds but relatively clear to auscultation bilaterally without crackles, wheezes, or rhonchi. Normal respiratory effort with no use of accessory muscles. Abdomen: Severely distended, tenderness to palpation, bowel sounds are appreciated due to tense ascites. No hepatosplenomegaly or masses appreciated due to tense ascites. No caput medusae. Genitourinary: Cameron catheter in place. Extremities: Trace edema of lower extremities bilaterally. No clubbing or cyanosis. Skin: Normal temperature, turgor, and texture; no rash, ulcers, or subcutaneous nodules appreciated. No spider angiomatous. Neurological: Cranial nerves grossly intact. Psychiatric: Normal mood and affect. . IVs and Medications Medications Reviewed: Medications were reviewed in detail Lab and Diagnostics Item Value Date Time Calcium Level 8.8 mg/dL 08/27/16 0400 Phosphorus Level 10.5 mg/dL H 08/27/16 0400 Magnesium Level 2.7 mg/dL H 08/27/16 0400 Total Bilirubin 0.6 mg/dL 08/27/16 0400 Aspartate Amino Transf (AST/SGOT) 23 U/L 08/27/16 0400 Alanine Aminotransferase (ALT/SGPT) 8 U/L 08/27/16 0400 Alkaline Phosphatase 71 U/L 08/27/16 0400 Total Protein 5.9 g/dL L 08/27/16 0400 Albumin 4.1 g/dL 08/27/16 0400 Procalcitonin 0.69 ng/mL H 08/26/16 0723 Result Diagram: 08/27/16 0400 08/27/16 0400 Microbiology Blood cultures 2 no growth after 24 hours. Peritoneal fluid at [facility]: WBCs 5190, neutrophils 78%, total protein 2.5, LDH 159, Gram stain and culture showed no organisms and no growth at 24 hours. . X-Rays, CTs and MRIs X-RAY CHEST ONE VIEW, PORTABLE IMPRESSION: No acute cardiopulmonary disease. Dictated by: Joon GHOSH Interpreted: Louie Carolina MD on 08/25/2016 at 16: 18 US ABDOMEN IMPRESSION: Moderate intra-abdominal ascites. Dictated by: Maribel Kimble M.D. on 08/26/2016 at 15:23 . Cardiac Echo Impressions Echocardiogram Interpretation Summary: Technically difficult echo. No apical nor subcostal images obtainable due to severe abdominal pain. Afib with rapid ventricular response. Normal LV size; mild concentric LVH. Normal wall motion in the visualized segments. Of note, only 8 out of 17 segments are visualized. There is mild MAC with mild associated MR. Aortic valve is a trileaflets structure without associated TR. Ascending aorta is mildly enlarged (4.5 cm diameter) No prior study available for comparison. Reading Physician:08:17 PM . Assessment & Plan Ric Wyatt is a 66-year-old, male with significant past medical history of chronic hepatitis C infection, liver cirrhosis, type 2 diabetes, hypertension, atrial fibrillation, who was transferred from [facility] for a higher level of care. Hospital day #3. Assessment: 1. Severe renal insufficiency, unknown baseline. Despite albumin and octreotide the patient remains oliguric and will plan to start hemodialysis today. Blood pressure has remained stable but slightly hypertensive. The etiology of acute kidney injury is possibly due to hepatorenal syndrome. Other possibilities include intravascular volume depletion, low effective circulating volume due to atrial fibrillation with RVR , increased intraabdominal pressure/intraabdominal hypertension, and ischemic ATN. 2. Suspected SBP. 3. Decompensated liver failure. 4. Abdominal ascites. 5. Chronic hepatitis C infection. 6. Atrial fibrillation with RVR. 7. History of hypertension. 8. History of type 2 diabetes. Plan: Will place a temporary femoral dialysis catheter and initiate hemodialysis. Continue 25% albumin 100 cc every 8 hours and octreotide 100 mg subcu q.8 h. . Await various serologies including complement 3, 4, and total complement 50. Patient will also receive 1 unit FFP with plans for paracentesis later this afternoon. Thank you for allowing me to participate in the care of your patient. We will monitor along with you. VTE Prophylaxis: SCDs VTE Mechanical Devices: Intermittant Pneumatic CD Resuscitation Status: DNR/DNI:Do Not Resuscitate/Intubate Limited Interventions: Medications and IV Fluid Mahsa Cifuentes DO August 27, 2016 13:41 Monocytes (%) (Auto) 8.1% (4-12) 7.6% (4-12) Eosinophils (%) (Auto) 0% (0-5) 0% (0-5) Basophils (%) (Auto) 0.1% (0-3) 0.1% (0-3) Prothrombin Time 14.8sec (8.1-12.5) Prothromb Time International Ratio 1.37ratio Activated Partial Thromboplast Time 27.4sec (22.8-33.0) 28.9sec (22.8-33.0) Sodium Level 135mEq/L (134-144) 136mEq/L (134-144) 138mEq/L (134-144) Potassium Level 6.2mEq/L (3.5-5.2) 5.1mEq/L (3.5-5.2) 4.9mEq/L (3.5-5.2) Chloride Level 90mEq/L (97-108) 89mEq/L (97-108) 90mEq/L (97-108) Carbon Dioxide Level 24mmol/L (18-29) 22mmol/L (18-29) 23mmol/L (18-29) Blood Urea Nitrogen 76mg/dL (8-27) 76mg/dL (8-27) 77mg/dL (8-27) Creatinine 4.26mg/dL (0.76-1.27) 4.22mg/dL (0.76-1.27) 3.96mg/dL (0.76-1.27) Estimat Glomerular Filtration Rate 15mL/min (>59) 15mL/min (>59) 16mL/min (>59) Glucose Level 243mg/dL (60-99) 205mg/dL (60-99) 219mg/dL (60-99) Hemoglobin A1c 7.0% (4.8-5.6) Calcium Level 8.8mg/dL (8.5-10.1) 8.8mg/dL (8.5-10.1) 8.7mg/dL (8.5-10.1) Magnesium Level 2.7mg/dL (1.6-2.6) 2.7mg/dL (1.6-2.6) Total Bilirubin 0.5mg/dL (0.0-1.2) 0.6mg/dL (0.0-1.2) 0.5mg/dL (0.0-1.2) Aspartate Amino Transf (AST/SGOT) 28U/L (0-50) 26U/L (0-50) 24U/L (0-50) Alanine Aminotransferase (ALT/SGPT) 12U/L (0-44) 10U/L (0-44) 9U/L (0-44) Alkaline Phosphatase 124U/L (25-160) 102U/L (25-160) 92U/L (25-160) Total Protein 6.2g/dL (6.4-8.4) 5.8g/dL (6.4-8.4) 5.9g/dL (6.4-8.4) Albumin 2.9g/dL (3.4-5.0) 3.6g/dL (3.4-5.0) 3.8g/dL (3.4-5.0) Procalcitonin 0.69ng/mL (0.00-0.08) 0.69ng/mL (0.00-0.08) Hold Cardoso Top Tube Received (Received) Urine Color Dark yellow (YELLOW) Urine Appearance Hazy (CLEAR,HAZY) Urine pH 5.0 (5.0-8.0) Urine Specific Rigby >1.030 (1.003-1.035) Urine Protein 100mg/dL (NEG,TRACE) Urine Glucose (UA) Negativemg/dL (NEGATIVE) Urine Ketones Tracemg/dL (NEGATIVE) Urine Occult Blood Large (NEGATIVE) Urine Nitrite Negative (NEGATIVE) Urine Bilirubin Negative (NEGATIVE) Urine Urobilinogen Normalmg/dL (NORMAL) Urine Leukocyte Esterase Negative (NEGATIVE) Urine RBC 11-50/hpf (0-2) Urine WBC 0-5/hpf (0-5) Urine Epithelial Cells Few/hpf (NONE-MOD) Urine Crystals None seen (NONE SEEN) Urine Bacteria Few/hpf (NONE-FEW) Urine Hyaline Casts None/lpf (NONE) Urine Granular Casts Occasional (NONE SEEN) Urine Waxy Casts None seen (NONE SEEN) Urine Red Blood Cell Casts None seen (NONE SEEN) Urine White Blood Cell Casts None seen (NONE SEEN) Urine Mucus None seen (None Seen) Urine Trichomonas None seen (NONE SEEN) Urine Yeast None (NONE SEEN) Urinalysis Comment Amorphous sediment Urine Culture Reflexed Not indicated Urine Urea Nitrogen 279mg/dL (Not Estab.) Phosphorus Level 8.3mg/dL (2.5-4.9) Hepatitis C Comment . Test 08/26/16 10:15 Urine Random Creatinine 187mg/dL (22-328) Urine Random Total Protein 221mg/dL (0-15) Urine Random Sodium 13mEq/L Urine Opiates Screen Negative Urine Methadone Screen Negative Urine Barbiturates Screen Negative Urine Amphetamines Screen Negative Urine Benzodiazepines Screen Negative Urine Cocaine Metabolite Screen Negative Urine Cannabinoids Screen Negative Microbiology 08/25/16 Blood Culture, Received Pending Peritoneal fluid at [facility]: WBCs 5190, neutrophils 78%, total protein 2.5, LDH 159, Gram stain and culture showed no organisms, no growth at 24 hours X-Rays, CTs and MRIs X-RAY CHEST ONE VIEW, PORTABLE IMPRESSION: No acute cardiopulmonary disease. Dictated by: Joon GHOSH Interpreted: Louie Carolina MD on 08/25/2016 at 16: 18 US ABDOMEN IMPRESSION: Moderate intra-abdominal ascites. Dictated by: Maribel Kimble M.D. on 08/26/2016 at 15:23 . Cardiac Echo Impressions Echocardiogram Interpretation Summary: Technically difficult echo. No apical nor subcostal images obtainable due to severe abdominal pain. Afib with rapid ventricular response. Normal LV size; mild concentric LVH. Normal wall motion in the visualized segments. Of note, only 8 out of 17 segments are visualized. There is mild MAC with mild associated MR. Aortic valve is a trileaflets structure without associated TR. Ascending aorta is mildly enlarged (4.5 cm diameter) No prior study available for comparison. Reading Physician:08:17 PM . Additional Diagnostics Abdominal U/S pending Peritoneal fluid analysis pending Assessment & Plan Ric Wyatt is a 66-year-old, male with significant past medical history of chronic hepatitis C infection, liver cirrhosis, type 2 diabetes, hypertension, atrial fibrillation, who was transferred from [facility] for a higher level of care. Hospital day #3. ASSESSMENT: 1. Severe renal insufficiency, unknown baseline. Despite albumin and octreotide the patient remains oliguric and will plan to start hemodialysis today. Blood pressure has remained stable but slightly hypertensive. The etiology of acute kidney injury is possibly due to hepatorenal syndrome. Other possibilities include intravascular volume depletion, low effective circulating volume due to atrial fibrillation with RVR , increased intraabdominal pressure/intraabdominal hypertension, and ischemic ATN. 2. Suspected SBP. 3. Decompensated liver failure. 4. Abdominal ascites. 5. Chronic hepatitis C infection. 6. Atrial fibrillation with RVR. 7. History of hypertension. 8. History of type 2 diabetes. Plan: Plan to place a temporary femoral dialysis catheter and initiate hemodialysis. Continue 25% albumin 100 cc every 8 hours and octreotide 100 mg subcu q.8 h. . Await various serologies including complement 3, 4, and total complement 50. Patient will also receive 1 unit FFP with plans for paracentesis later this afternoon. Thank you for allowing me to participate in the care of your patient. We will monitor along with you. VTE Prophylaxis: SCDs VTE Mechanical Devices: Intermittant Pneumatic CD Resuscitation Status: DNR/DNI:Do Not Resuscitate/Intubate Limited Interventions: Medications and IV Fluid Mahsa Cifuentes DO August 27, 2016 13:41
--- NOTE | 2016-08-27 13:50 | PCM.PROC ---
Procedure Note Date of Service: August 27, 2016 Pre Procedure Diagnosis: REGINO Post Procedure Diagnosis: REGINO Procedure: Non-tunneled hemodialysis catheter placement Provider and Layout Inspector: Dr. Avalos sales assistant entertainment and media: Dr. Cifuentes Indication for Procedure: REGINO, oliguria, uremia Procedural Analgesia: 1% lidocaine administered subcutaneously for local anesthesia Procedure Details: Consent: Detailed explanation of the procedure, treatment options, risks including but not limited to infection and bleeding, and benefits were explained to the patient. A written informed consent was obtained. Technique: A time out was preformed identifying the correct procedure, the correct location with the nursing staff. The right groin was prepped with 2% chlorhexidine and draped with a full length sterile sheet in the usual fashion. 1% lidocaine was administered subcutaneously for local anesthesia. The right femoral vein was accessed under ultrasound guidance with an 18 gauge thin wall needle. A MAC was inserted via the Seldinger technique. Blood was withdrawn from all lumens and flushed with normal saline. The catheter was sutured in place and a sterile dressing was applied over the site prior to removal of drapes. The patient tolerated the procedure well and there were no complications. EBL: 10 mL. Complication: None Post Procedure Plan: Start first HD today. Jean Claude Avalos MD August 27, 2016 13:50
--- NOTE | 2016-08-27 14:00 | PCM.PNMED ---
Subjective Date of Service August 27, 2016 Subjective Hospital day 3. A. fib with RVR overnight responsive to metoprolol IV push. Patient reports significant abdominal discomfort this morning with increased distention, and reports nausea without vomiting. Nursing also reports overnight scant urine production. Focused ROS otherwise negative. Exam Vital Signs Vital Sign - Last Date Time Temp Pulse Resp B/P Pulse Ox O2 Delivery O2 Flow Rate FiO2 08/27/16 11:56 36.5 122 26 131/87 94 Nasal Cannula 2.00 Intake and Output 08/26/16 08/26/16 08/27/16 Cumulative From/Thru 15:00 23:00 07:00 08/25/16 14:32 - 08/27/16 06:20 Intake Total 550 ml 620 ml 1902 ml Output Total 120 ml 75 ml 370 ml Balance 430 ml 545 ml 1532 ml Intake Oral 400 ml 520 ml 1470 ml IV Total 150 ml 100 ml 432 ml Output Urine Total 120 ml 75 ml 370 ml Exam Gen.: Patient uncomfortable lying in bed with occasional moan. Improved with administration of IV Morphine, and patient resting comfortably, but easily awakened. HEENT: No JVD appreciated today, no lymphadenopathy Cardio: Tachycardic. No murmurs appreciated. Radial pulses are 2+ bilaterally Respiratory: Crackles in bilateral bases otherwise clear Abdomen: Increased abdominal tenderness, increased girth and distended; unable to palpate liver disorder Extremities: Mild pitting edema in the legs below the knees, but no cyanosis or clubbing Neuro: Grossly neurologically intact. Psych: Appropriate mood and affect IVs and Medications Medications Reviewed: Medications were reviewed in detail Lab and Diagnostics Laboratory Tests Test 08/27/16 04:00 08/27/16 10:30 White Blood Count 15.5th/mm3 (3.8-10.1) Red Blood Count 4.58mil/mm3 (4.40-5.80) Hemoglobin 13.7g/dL (13.8-17.2) Hematocrit 40.1% (41.0-50.0) Mean Corpuscular Volume 87.6fL (81-100) Mean Corpuscular Hemoglobin 29.9pg (27.0-35.0) Mean Corpuscular Hemoglobin Concent 34.2% (32.0-37.0) Red Cell Distribution Width 13.8% (12.3-15.4) Platelet Count 401bil/L (150-400) Neutrophils (%) (Auto) 87.4% (40-74) Lymphocytes (%) (Auto) 3.4% (14-46) Monocytes (%) (Auto) 8.7% (4-12) Eosinophils (%) (Auto) 0.1% (0-5) Basophils (%) (Auto) 0.1% (0-3) Sodium Level 135mEq/L (134-144) Potassium Level 5.0mEq/L (3.5-5.2) Chloride Level 87mEq/L (97-108) Carbon Dioxide Level 22mmol/L (18-29) Blood Urea Nitrogen 83mg/dL (8-27) Creatinine 4.49mg/dL (0.76-1.27) Estimat Glomerular Filtration Rate 14mL/min (>59) Glucose Level 182mg/dL (60-99) Calcium Level 8.8mg/dL (8.5-10.1) Phosphorus Level 10.5mg/dL (2.5-4.9) Magnesium Level 2.7mg/dL (1.6-2.6) Total Bilirubin 0.6mg/dL (0.0-1.2) Aspartate Amino Transf (AST/SGOT) 23U/L (0-50) Alanine Aminotransferase (ALT/SGPT) 8U/L (0-44) Alkaline Phosphatase 71U/L (25-160) Total Protein 5.9g/dL (6.4-8.4) Albumin 4.1g/dL (3.4-5.0) Prothrombin Time 19.7sec (8.1-12.5) Prothromb Time International Ratio 1.82ratio Microbiology 08/25/16 Blood Culture - Preliminary, Resulted NO GROWTH AFTER 24 HOURS Result Diagram: 08/27/16 0400 08/27/16 0400 X-Rays, CTs and MRIs Date of Service: 08/25/16 1529 PROCEDURE: X-RAY CHEST ONE VIEW, PORTABLE ([id number]) INDICATIONS: pulmonary edema aneuric IMPRESSION: No acute cardiopulmonary disease. Dictated by: Joon GHOSH Interpreted: Louie Carolina MD on 08/25/2016 at 16: 18 Date of Service: 08/26/16 1318 PROCEDURE: US ABDOMEN ([id number]) INDICATIONS: Ascites, REGINO. IMPRESSION: Moderate intra-abdominal ascites. Dictated by: Maribel Kimble M.D. on 08/26/2016 at 15:23 Patient also had a PICC line placed on 08/26/16 Cardiac Echo Impressions Date of Service: 08/26/16 1432 Interpretation Summary Technically difficult echo. No apical nor subcostal images obtainable due to severe abdominal pain. Afib with rapid ventricular response. Normal LV size; mild concentric LVH. Normal wall motion in the visualized segments. Of note, only 8 out of 17 segments are visualized. There is mild MAC with mild associated MR. Aortic valve is a trileaflets structure without associated TR. Ascending aorta is mildly enlarged (4.5 cm diameter) No prior study available for comparison. Assessment & Plan Mr. Wyatt is a 66-year-old gentleman with a history of hypertension, diabetes , cirrhosis, hep C (s/p tx reported), atrial fibrillation who presented with 2 weeks of increasing abdominal distention, seen at [facility] and transferred here for higher level care, he has been increasingly dyspneic with minimal exertion and also tachypneic. Gastroenterology and nephrology are both involved in the case. Abdominal pain and ascites both acute in onset, present on admission, active -Multiple possible factors, all of which are concerning: * Portal vein thrombosis * Decompensated cirrhosis * SBP (concern at [place] [facility] and initiated on Ceftriaxone) * CHF * Renal failure * Or a combination of the above -Nephrology following, and have proceeded with placement of a dialysis catheter (he will be dialyzed today) -GI following, and recommend paracentesis followed by ABD US Doppler, and likely a repeat echo * Currently awaiting INR (following FFP admin) to assess for safety proceeding with tap -high risk of respiratory compromise given the degree and rapidity of ascitic development -pain control with IV morphine Decompensated liver cirrhosis, present on admission, active -presumably from underlying hep C. unremarkable history of alcohol. no signs of hepatic encephalopathy on exam, ammonia unremarkable at [place], normal liver function tests. -Hep C ab positive as expected -Please note report of treatment with interferon in the past -trending coag panel, and provide anticoagulation (as these patients are at increased thromboembolic risk) -Please note norm/elevated platelets -GI follow up upon discharge Suspicion for SBP, present on admission. Active -On ascitic fluid at [place] [facility] (WBC 5190) -Leukocytosis persists -continue Rocephin 1g daily with consideration for switching to Cefotaxime (?if needs to be adjusted for GFR) -Gram stain and culture of peritoneal fluid from [facility] shows no organisms and no growth as of 08/27/16 at 1700 -Per GI: * Repeat paracentesis with cell count, TP, alb, Cx -Consider consultation ID -Acute renal failure, present on admission. Active -Concern for hepatorenal syndrome with possible contributions from prerenal and ATN in the setting of decreased effective arterial blood volume. -We appreciate input from nephrology along with their expertise -Despite albumin and octreotide, patient continues to be oliguric --> therefore , decision to proceed with dialysis -alan cath, strict i/o, trend cr, avoid nephrotoxins, renally adjust meds -Hopefully, paracentesis today (if possible) will help. Atrial Fibrillation with Rapid Ventricular Rate, POA, active -rate 110-130s -Good response to metoprolol 5mg IV, and consider scheduling vs Esmolol with eventual conversion to PO -Likely related to the above complicating conditions -Even more important reason to anticoagulate this patient -Diltiazem 60 mg by mouth daily currently (this is short-acting and we should consider switch to either ACHS dosing or ER formulation) * Discussed medication effect with telemetry (no effect on rate control with dose of Diltiazem this AM) * Consider stopping altogether -Echo as above -Thyroid panel to rule out Hypertension, present on admission. Stable - monitor for now Diabetes type II, present on admission. Poorly controlled -A1c 7.0 -diabetic diet -low-dose correction with possibility of adding basal insulin tomorrow Patient will be admitted with inpatient status with expectation of inpatient therapy for more than 2 midnights Dispo: Guarded given his recurring ascites and unstable picture with concerns regarding his hepatic, renal, and cardiac function. Pain Evaluation: Adequate Pain Control GI Prophylaxis: Not indicated VTE Mechanical Devices: Intermittant Pneumatic CD Resuscitation Status: DNR/DNI:Do Not Resuscitate/Intubate Attending Statement The patient was seen and examined together with Resident/House-Staff on 08/27/16 and I agree with the history, exam and plan as outlined in the note above. Josue Barron DO August 27, 2016 14:00 Meet Hutchinson August 28, 2016 17:04 VTE Mechanical Devices: Intermittant Pneumatic CD Resuscitation Status: DNR/DNI:Do Not Resuscitate/Intubate Limited Interventions: Medications and IV Fluid de Josue Dee DO August 27, 2016 14:00
--- NOTE | 2016-08-27 14:18 | NUR ---
FFP obtained from blood bank. Compatability report had arm band number was [id number] and pt's arm band number on his right wrist was [id number]. Confirmed with primary RN, September. FFP was returned to the blood bank. When new FFP came the arm band number on the compatability report [place] [id number] written in with no initials, confirmed with floor RN Marisol. Unit number and type were the same. FFP was started with BP and temperature checks per protocol. Pt tolerated FFP without difficulty.
[2016-08-27] MEDS ORDERED: MeTOProlol 1 mg/mL 5 mL Inj ONE (14:33)
[2016-08-27] MEDS ORDERED: MeTOProlol 1 mg/mL 5 mL Inj IV ONE (14:45)
--- NOTE | 2016-08-27 16:07 | NUR ---
Dialysis note: Right femoral line inserted by Dr. Lozada. Limbs flushed and lines secured. 2 1/2 hr prescribed tx time, completed 2 hr 10 min r/t clotting system. Net UF 0.0 Pt was uncomfortable during tx c/o pain and nausea; floor RN gave morphine and zofran. Tachycardic throughout tx, metoprolol given by floor RN at 1430. FFP given through dialysis machine and when dialysis lines began to clot, FFP line moved to peripheral line assisted by floor RNJudit. Tx dc'd 30 min early r/t system clotting. Approx 1/2 of blood was able to be returned to pt. Limbs flushed, heparin 1000 dwell, and secured with caps. Site cleaned with chloroprep and Island dressing applied. No blood noted. Please see DTR for complete record of VS. Pt stable at end of tx.
[2016-08-27 16:56] LABS: INR 1.69 ratio
[2016-08-27] MEDS ORDERED: Phytonadione (Adult) 10 mg/1 mL Inj PO ONE (17:30)
--- NOTE | 2016-08-27 19:48 | NUR ---
Dialysis/Pain... Pt has received several doses of Morphine which has helped pt sleep for intemittent intervals. Was seen by this am and prepared for paracentesis, but this could not be accomplished due to elevated PT. Pt received FFP without reactions but followup PT remains elevated. PT will be rechecked in am and possible paracentesis is planned for am. Had dialysis cath placed to R groin and had dialysis for several hours. Pt's arrived and was updated on status. Pt's overall health appears poor and palliative will be consulted tomorrow.
[2016-08-27] MEDS ORDERED: Heparin 5,000 Unit/mL Inj SUBQ SCH (20:30)
[2016-08-28] MEDS: Albumin 25% 25 GM in IV Premix 1 EACH IV SCH (00:49)
[2016-08-28] MEDS ORDERED: hydrOXYzine Pamoate 25 mg Capsule PO ONE (02:40)
[2016-08-28 03:21] VITALS: BP 113/79; PULSE 104; RESP 20; O2SAT 95
--- NOTE | 2016-08-28 04:40 | ABG ---
DateTimeAnalyzed 04:36:00 -_ pH ____7.167 - 7.350 7.450 pCO2 ___48.6__ -mmHg 35.0 45.0 pO2 ___61.7__ -mmHg 69.0 116 HCO3- ___16.9__ -mmol/L 22.0 26.0 ABE __-11.4__ -mmol/L -2.0 2.0 tHb ___13.1__ -g/dL O2Hb ___83.0__ -% COHb ____0.8__ -% MetHb ____0.9__ -% sO2 ___84.4__ -% 25.0 FIO2 __100.0__ -% Drawn By AF - Date/Time Notified____ 04:39:00 -_ Oxygen Device 1 NON RE-AIDA - Notified By AF - Notified Whom ___Dr. Cherry - B 763 -mmHg tO2 ___15.3__ -Vol% Geronimo test _Positive -
[2016-08-28] MEDS ORDERED: SODIUM BICARB IVPUSH ONE (04:45)
[2016-08-28 04:53] LABS: BASOPHILS % (AUTO) 0.1 % (0-3); EOSINOPHILS % (AUTO) 0 % (0-5); MONOCYTES % (AUTO) 4.4 % (4-12); Mean Corpuscular Hemoglobin 29.4 pg (27.0-35.0); Mean Corpuscular Volume 90.4 fL (81-100); NEUTROPHILS % (AUTO) 92.3 % (40-74)
[2016-08-28 05:09] LABS: INR 1.8 ratio
[2016-08-28 05:10] VITALS: RESP 21
[2016-08-28] MEDS ORDERED: Sodium Bicarb (50 mEq) 8.4% 1 mEq/mL 50 mL Syringe IVPUSH ONE (05:10)
[2016-08-28 05:21] LABS: Phosphorus 13.2 mg/dL (2.5-4.9)
[2016-08-28 06:20] LABS: Magnesium 2.8 mg/dL (1.6-2.6)
--- NOTE | 2016-08-28 07:28 | NUR ---
Patient Passing Pt at 0605. Prior to pt passing away the pt's was called and a voicemail was left asking for her to call back. was notified of pt's passing at 0614. Organ Donation was called shortly after the MD was notified. Attempted to call the second number listed in the pt's next of kin phone numbers and it appeared to be a wrong number. Tried to call the number listed as the pt's home phone number once again and got the answering machine again and did not leave a message this time. Addendum: 08/28/16 at 0754 by MIRYAM HOGAN RN At approximately 0745 pt's was reached via phone and notified of her 's passing.
--- NOTE | 2016-08-28 14:12 | PCM.DC.MED ---
Discharge Summary Date of Service August 28, 2016 Dates of Hospitalization Date of Hospital Admission August 25, 2016 at 14:15 Date of Discharge: August 28, 2016 Providers: Admitting Physician: Meet Hutchinson Primary Care Physician: Steve Deal MD Attending Physician: Meet Hutchinson Diagnosis at Time of Discharge Diagnosis at Time of Discharge Patient on 08/28/16 at 0614. Hepatorenal syndrome secondary to acute ascites of unclear etiology Cirrhosis with laboratory and clinical signs of decompensation Coagulopathy secondary to decompensation noted above SBP Afib with RVR Consultations GI Nephrology Procedures XRay, CTs & MRIs Date of Service: 08/25/16 1529 PROCEDURE: X-RAY CHEST ONE VIEW, PORTABLE ([id number]) INDICATIONS: pulmonary edema aneuric IMPRESSION: No acute cardiopulmonary disease. Dictated by: Joon GHOSH Interpreted: Louie Carolina MD on 08/25/2016 at 16: 18 Date of Service: 08/26/16 1318 PROCEDURE: US ABDOMEN ([id number]) INDICATIONS: Ascites, REGINO. IMPRESSION: Moderate intra-abdominal ascites. Dictated by: Maribel Kimble M.D. on 08/26/2016 at 15:23 Patient also had a PICC line placed on 08/26/16 Cardiac Echo Impression Date of Service: 08/26/16 1432 Interpretation Summary Technically difficult echo. No apical nor subcostal images obtainable due to severe abdominal pain. Afib with rapid ventricular response. Normal LV size; mild concentric LVH. Normal wall motion in the visualized segments. Of note, only 8 out of 17 segments are visualized. There is mild MAC with mild associated MR. Aortic valve is a trileaflets structure without associated TR. Ascending aorta is mildly enlarged (4.5 cm diameter) No prior study available for comparison. Invasive Procedures Right femoral vein non-tunnelled dialysis catheter placement on 08/27/[address] Avalos (Nephrology). Other Diagnostics DateTimeAnalyzed 04:36:00 -_ pH ____7.167 - 7.350 7.450 pCO2 ___48.6__ -mmHg 35.0 45.0 pO2 ___61.7__ -mmHg 69.0 116 HCO3- ___16.9__ -mmol/L 22.0 26.0 ABE __-11.4__ -mmol/L -2.0 2.0 tHb ___13.1__ -g/dL O2Hb ___83.0__ -% COHb ____0.8__ -% MetHb ____0.9__ -% sO2 ___84.4__ -% Brief History The following is taken from Dr. Blackmon's H&P dated 08/25/16: 66-year-old male with history of hypertension, diabetes, cirrhosis, hep C, atrial fibrillation and should present to [facility] with two weeks of difficulty breathing. Patient stated that he had food poisoning about 2 weeks ago after he had ham and burger. Pt had large amount vomiting and diarrhea once , felt not good. Since then started having his abdominal size was getting bigger , progressively tender. Patient also noticed that he was easily dyspneic with minimal exertion, noticed leg swellings as well. couldn't sleep well but didn't have PND. pt denied cough, sputum, sore throat, runny nose, fever chills. pt stated that he was stubborn and wait till today, decided to come to the hospital due to progressively worsening sx. During the course of [facility]. noted hypertensive to 180s, tachycardic to 130s. [id number]. pt had [id number] iv, responded to [id number]. abd US obtained which showed echogenic liver with multiple nodules, echogenic. ascities. Paracentesis performed, 1liter cloudy fluid was drained, which showed [id number], neut 78%. pt got 1g Ceftriaxone for presumed SBP. Lab showed wbc16.3, h /h15.1/45.0, neu92%, INR1.4, albumin1.0, ammonia<10, bun74, Cr4.4, Na140, K5.5 AST/ALT 35/17, bili normal. PCP was consulted. Given no GI/ nephrology back up, recommended to transfer to [facility] with assumption of HRS. upon MPC, VS 166/103, 107-133, afebrile, 95% on RA. pt looked mildly distressed but comfortable on bed, HOB>20, repeat labs were sent. consulted, Hospital Course Mr. Wyatt is a 66-year-old gentleman with a history of hypertension, diabetes , cirrhosis, hep C (s/p tx reported), atrial fibrillation who presented with 2 weeks of increasing abdominal distention, seen at [facility] and transferred here for higher level care, he has been increasingly dyspneic with minimal exertion and also tachypneic. Gastroenterology and nephrology are both involved in the case. Abdominal pain and ascites both acute in onset -Multiple possible factors, all of which were concerning: * Portal vein thrombosis * Decompensated cirrhosis * SBP (concern at [facility] and initiated on Ceftriaxone) * CHF * Renal failure * Or a combination of the above -Nephrology followed, and proceeded with placement of a dialysis catheter as noted above (he was dialyzed 08/26/16) * Unfortunately, dialysis was prematurely stopped due to line clogging while administering the FFP. -GI followed, and recommended therapeutic/diagnostic paracentesis followed by ABD US Doppler (concern for portal vein thrombosis), and likely a repeat echo ( to further evaluate the likelihood of cardiac contribution to presentation) * Unfortunately, the patient's INR was >1.5 despite corrective interventions with FFP and Vitamin K. And therefore, no paracentesis could be safely performed. -high risk of respiratory compromise given the degree and rapidity of ascitic development * For this reason we continued close monitoring in the PCC proximate to the ICU. -pain control with IV morphine as needed for severe pain Decompensated liver cirrhosis with coagulopathy -presumably from underlying hep C. unremarkable history of alcohol. no signs of hepatic encephalopathy on exam, ammonia unremarkable at [facility], normal liver function tests. -Hep C ab positive as expected -Please note report of treatment with interferon in the past -trended coag panel (as noted above), and provided anticoagulation (as these patients are at increased thromboembolic risk) in the form of q12h Heparin SQ. -Platelets were normal/slightly elevated -GI followed, and we appreciate their expertise. Suspicion for SBP -On ascitic fluid at [facility] (WBC 5190) -Leukocytosis persisted -continued Rocephin 1g daily with consideration for switching to Cefotaxime ( concerns with dosing given changing GFR) -Gram stain and culture of peritoneal fluid from [facility] shows no organisms and no growth as of 08/27/16 at 1700 -Difficulty with arranging paracentesis as noted. -Acute renal failure -Concern for hepatorenal syndrome with possible contributions from prerenal and ATN in the setting of decreased effective arterial blood volume. -We appreciate input from nephrology along with their expertise -Despite albumin and octreotide, patient continued to be oliguric with worsening renal function --> therefore, decision to proceed with dialysis -alan cath, strict i/o, avoided nephrotoxins, renally adjusted meds Atrial Fibrillation with Rapid Ventricular Rate -rate 110-130s -Good response to metoprolol 5mg IV, and continued PRN with goal rate in the 100 -110's -Likely related to the above complicating conditions -Even more important reason to anticoagulate this patient -Echo as above -Thyroid panel demonstrated normal TSH with borderline FT4. Hypertension Diabetes type II. Poorly controlled -A1c 7.0 -diabetic diet -low-dose correction Early AM 08/28/16 patient noted to be more somnolent. ABG demonstrated significant metabolic acidosis with respiratory acidosis and significant hypoxemia. Complete respiratory failure resulting in the patient's passing at 0605. I called patient's PCP to inform of patient's passing. Exam Vital Signs (Last) Date Time Temp Pulse Resp B/P Pulse Ox O2 Delivery O2 Flow Rate FiO2 08/28/16 05:10 113 21 Nasal Cannula 40 70 08/28/16 03:21 36.5 113/79 95 Exam Physical exam on day prior to passing: Gen.: Patient uncomfortable lying in bed with occasional moan. Improved with administration of IV Morphine, and patient resting comfortably, but easily awakened. HEENT: No JVD appreciated today, no lymphadenopathy Cardio: Tachycardic. No murmurs appreciated. Radial pulses are 2+ bilaterally Respiratory: Crackles in bilateral bases otherwise clear Abdomen: Increased abdominal tenderness, increased girth and distended; unable to palpate liver disorder Extremities: Mild pitting edema in the legs below the knees, but no cyanosis or clubbing Neuro: Grossly neurologically intact. Psych: Appropriate mood and affect Test 08/25/16 15:41 08/25/16 17:10 08/26/16 07:23 08/26/16 10:15 Hemoglobin A1c 7.0% (4.8-5.6) Hold Cardoso Top Tube Received (Received) Urine Color Dark yellow (YELLOW) Urine Appearance Hazy (CLEAR,HAZY) Urine pH 5.0 (5.0-8.0) Urine Specific [place] >1.030 (1.003-1.035) Urine Protein 100mg/dL (NEG,TRACE) Urine Glucose (UA) Negativemg/dL (NEGATIVE) Urine Ketones Tracemg/dL (NEGATIVE) Urine Occult Blood Large (NEGATIVE) Urine Nitrite Negative (NEGATIVE) Urine Bilirubin Negative (NEGATIVE) Urine Urobilinogen Normalmg/dL (NORMAL) Urine Leukocyte Esterase Negative (NEGATIVE) Urine RBC 11-50/hpf (0-2) Urine WBC 0-5/hpf (0-5) Urine Epithelial Cells Few/hpf (NONE-MOD) Urine Crystals None seen (NONE SEEN) Urine Bacteria Few/hpf (NONE-FEW) Urine Hyaline Casts None/lpf (NONE) Urine Granular Casts Occasional (NONE SEEN) Urine Waxy Casts None seen (NONE SEEN) Urine Red Blood Cell Casts None seen (NONE SEEN) Urine White Blood Cell Casts None seen (NONE SEEN) Urine Mucus None seen (None Seen) Urine Trichomonas None seen (NONE SEEN) Urine Yeast None (NONE SEEN) Urinalysis Comment Amorphous sediment Urine Culture Reflexed Not indicated Activated Partial Thromboplast Time 28.9sec (22.8-33.0) Hepatitis A IgM Antibody Negative (Negative) Hepatitis B Surface Antigen Negative (Negative) Hepatitis B Core IgM Antibody Negative (Negative) Hepatitis C Antibody >11.0s/co ratio Hepatitis C Antibody Comment Comment (.) Hepatitis C Comment . HIV (1&2) Ag and Ab, 4th Generation Non reactive (Non Reactive) HIV (1&2) Antibody Rapid Negative (Negative) Urine Random Creatinine 187mg/dL (22-328) Urine Random Total Protein 221mg/dL (0-15) Urine Random Sodium 13mEq/L Urine Urea Nitrogen 570mg/dL (Not Estab.) Urine Opiates Screen Negative Urine Methadone Screen Negative Urine Barbiturates Screen Negative Urine Amphetamines Screen Negative Urine Benzodiazepines Screen Negative Urine Cocaine Metabolite Screen Negative Urine Cannabinoids Screen Negative Test 08/27/16 04:00 08/27/16 17:45 08/28/16 04:30 Anti-Nuclear Antibody Screen Negative (Negative) Thyroid Stimulating Hormone (TSH) 1.020uIU/mL (0.450-4.500) Free Thyroxine 0.73ng/dL (0.82-1.77) White Blood Count 13.5th/mm3 (3.8-10.1) Red Blood Count 4.36mil/mm3 (4.40-5.80) Hemoglobin 12.8g/dL (13.8-17.2) Hematocrit 39.4% (41.0-50.0) Mean Corpuscular Volume 90.4fL (81-100) Mean Corpuscular Hemoglobin 29.4pg (27.0-35.0) Mean Corpuscular Hemoglobin Concent 32.5% (32.0-37.0) Red Cell Distribution Width 14.0% (12.3-15.4) Platelet Count estee/L (150-400) Neutrophils (%) (Auto) 92.3% (40-74) Lymphocytes (%) (Auto) 2.7% (14-46) Monocytes (%) (Auto) 4.4% (4-12) Eosinophils (%) (Auto) 0% (0-5) Basophils (%) (Auto) 0.1% (0-3) Prothrombin Time 19.5sec (8.1-12.5) Prothromb Time International Ratio 1.80ratio Sodium Level 134mEq/L (134-144) Potassium Level 5.5mEq/L (3.5-5.2) Chloride Level 86mEq/L (97-108) Carbon Dioxide Level 17mmol/L (18-29) Blood Urea Nitrogen 80mg/dL (8-27) Creatinine 4.94mg/dL (0.76-1.27) Estimat Glomerular Filtration Rate 13mL/min (>59) Glucose Level 115mg/dL (60-99) Calcium Level 8.5mg/dL (8.5-10.1) Phosphorus Level 13.2mg/dL (2.5-4.9) Magnesium Level 2.8mg/dL (1.6-2.6) Total Bilirubin 0.9mg/dL (0.0-1.2) Aspartate Amino Transf (AST/SGOT) 45U/L (0-50) Alanine Aminotransferase (ALT/SGPT) 17U/L (0-44) Alkaline Phosphatase 69U/L (25-160) Total Protein 6.3g/dL (6.4-8.4) Albumin 4.2g/dL (3.4-5.0) Procalcitonin 1.09ng/mL (0.00-0.08) Microbiology Results Blood cultures negative x 2. Discharge Medications Discharge Medications Aspirin (Aspirin) 81 Mg Tablet 81 MG PO DAILY (Reported) Followup Plan Disposition: Patient . Attending Statement The patient was seen and examined together with Resident/House-Staff on 08/28/16 and I agree with the history, exam and plan as outlined in the note above. copies to: Steve Deal MD, Collin T DO August 28, 2016 14:12 Meet Hutchinson August 28, 2016 17:17
[2016-08-29 03:27] LABS: Complement Total(CH50) 52 U/mL (42-60)
== END 2016-08-28 06:05 | disposition expired | DRG 441 ==
LOC: MPC 14:15 → PCC 18:19
PROVIDERS: ADMIT Internal Medicine; ATTEND Internal Medicine
PROC: 06HM33Z Insertion of Infusion Device into Right Femoral Vein, Percutaneous Approach (ICD-10-PCS; principal; 2016-08-27)
PROC: 5A1D00Z (ICD-10-PCS; 2016-08-27)
PROC: 30233K1 Transfusion of Nonautologous Frozen Plasma into Peripheral Vein, Percutaneous Approach (ICD-10-PCS; 2016-08-27)
PROC: 4A033R1 Measurement of Arterial Saturation, Peripheral, Percutaneous Approach (ICD-10-PCS; 2016-08-28)
DX: K76.7 Hepatorenal syndrome (principal); K65.2 Spontaneous bacterial peritonitis; J96.01 Acute respiratory failure with hypoxia; N17.9 Acute kidney failure, unspecified; R18.8 Other ascites; D68.9 Coagulation defect, unspecified; E87.2 Acidosis; B19.20 Unspecified viral hepatitis C without hepatic coma; I48.91 Unspecified atrial fibrillation; E87.5 Hyperkalemia; E87.70 Fluid overload, unspecified; K74.60 Unspecified cirrhosis of liver; E11.9 Type 2 diabetes mellitus without complications; Z66 Do not resuscitate; B96.89 Other specified bacterial agents as the cause of diseases classified elsewhere